=== PATIENT | male | born 1940 | race Caucasian/White ===

== ENCOUNTER 2017-02-28 11:14 | Emergency (ER) | payer MEDICARE, OTHER ==
[~2017-02-28] VITALS: Ht 180.3 cm; Wt 113.0 kg
[~2017-02-28 11:14] MED LIST: ASPIRIN EC81 MG PO; AUGMENTIN500TAB PO; AVELOX400 MG PO; CORTISPORIN OTI10 ML AD; EQ ASPIRIN325 M1 OR; EQ ASPIRIN81 M1 PO; ESTER-C500 M2 OR; FISH OIL1000 M1 OR; FOLIC ACID400 MC1 OR; KLOR-CON 1010 ME1 OR; KLOR-CON M2020 MEQ PO; LASIX40 MG PO; LIPITOR40 MG PO; LISINOPRIL20 MG; LORTAB 5 OR; LOSARTAN POT100 MG PO; MEDDOSEPAK PO; MULTI VIT PO; MULTI VITAMN OR; NAPROSYN375 MG PO; NORVASC10 M1 PO; NORVASC5 MG OR; PLAVIX75 MG PO; PRO-AIR INH; SAW PALMETTO450 MG PO; TOPROL XL25 M1 PO; VIT B12 PO; [UNRECOGNIZED DRUG - OTHER] PO
[2017-02-28] MEDS ORDERED: BACTRIM DS1 TAB PO ×2 (11:46→11:49)
[2017-02-28] MEDS ORDERED: CEPHALEXIN500 MG PO ×2 (11:46→11:49)
[2017-02-28 11:54] VITALS: BP 139/74
== END 2017-02-28 11:54 | disposition home or self-care (01) ==
LOC: ED 11:14
DX: T81.4XXA Infection following a procedure, initial encounter (principal); I25.10 Atherosclerotic heart disease of native coronary artery without angina pectoris; I10 Essential (primary) hypertension; M19.90 Unspecified osteoarthritis, unspecified site; Y83.8 Other surgical procedures as the cause of abnormal reaction of the patient, or of later complication, without mention of misadventure at the time of the procedure; Z95.5 Presence of coronary angioplasty implant and graft; Z85.820 Personal history of malignant melanoma of skin

== ENCOUNTER 2017-08-01 09:14 | Emergency (ER) | payer MEDICARE, OTHER ==
[~2017-08-01] VITALS: Ht 180.3 cm; Wt 103.6 kg
[~2017-08-01 09:14] MED LIST changes: +BACTRIM DS1 TAB PO; +CEPHALEXIN500 MG PO
[2017-08-01 11:56] VITALS: BP 145/81
== END 2017-08-01 12:04 | disposition home or self-care (01) ==
LOC: ED 09:14
PROC: 0HQ1XZZ Repair Face Skin, External Approach (ICD-10-PCS; principal; 2017-08-01)
DX: S01.111A Laceration without foreign body of right eyelid and periocular area, initial encounter (principal); I25.10 Atherosclerotic heart disease of native coronary artery without angina pectoris; I10 Essential (primary) hypertension; M19.90 Unspecified osteoarthritis, unspecified site; W22.09XA Striking against other stationary object, initial encounter; Y92.009 Unspecified place in unspecified non-institutional (private) residence as the place of occurrence of the external cause; Z95.5 Presence of coronary angioplasty implant and graft

== ENCOUNTER 2017-08-10 10:16 | Emergency (ER) | payer MEDICARE, OTHER ==
[~2017-08-10] VITALS: Ht 180.3 cm; Wt 105.6 kg
[2017-08-10 11:38] VITALS: BP 130/70
== END 2017-08-10 11:40 | disposition home or self-care (01) ==
LOC: ED 10:16
DX: S01.111D Laceration without foreign body of right eyelid and periocular area, subsequent encounter (principal)

== ENCOUNTER 2020-01-20 | Emergency (ER) | payer MEDICARE, OTHER ==
[2020-01-20] MEDS ORDERED: POTASSIUM99 MG PO (20:16)
[2020-01-20] MEDS ORDERED: LOSARTAN POTASS50 MG PO (20:18)
[2020-01-20] MEDS ORDERED: NORVASC5 M1 PO (20:19)
[2020-01-20 20:37] LABS: HEMATOCRIT 37.1 % (39.0-50.0); HEMOGLOBIN 12.8 g/dl (14.0-18.0); IMMATURE GRANULOCYTES 0.2 % (0.0-5.0); MEAN CELL VOLUME 91.8 fL CALC (80.0-100.0); MEAN CORPUSCULAR HGB 31.7 pG CALC (26.0-32.0); MEAN CORPUSCULAR HGB CONC 34.5 g/dL CAL (32.0-36.0); NEUT# 3.34 thou/uL (1.82-7.42); RED BLOOD COUNT 4.04 mill/uL (4.70-6.10); RED CELL DISTRI WIDTH 12.2 % (11.5-15.5)
[2020-01-20 20:46] LABS: ALKALINE PHOSPHATASE 109 u/l (38-126); ANION GAP 11 (6-22 (CALC)); BILIRUBIN, TOTAL 0.6 mg/dL (0.0-1.4); BUN 22 mg/dL (8-23); BUN/CREATININE RATIO 28 (12-20 (CALC)); CARBON DIOXIDE 27 mmol/l (22-30); CHLORIDE 105 mmol/l (95-108); CREATININE 0.8 mg/dL (0.7-1.3); GFR > 60 ML/MIN (>=60 (CALC)); GFR FOR AFR.AMER. > 60 ML/MIN (>=60 (CALC)); POTASSIUM 3.4 mmol/l (3.5-5.1); SGOT/AST 27 u/l (19-48); SODIUM 139 mmol/l (137-146); TOTAL PROTEIN 7.1 g/dL (6.3-8.2)
[2020-01-20 20:58] LABS: MYOGLOBIN 32 ng/mL (0 - 121)
[2020-01-20] MEDS ORDERED: ROBITUSSIN AC10 ML PO (21:41)
[2020-01-20] MEDS ORDERED: TORADOL PO (21:41)
--- NOTE | 2020-01-25 10:10 | NUR ---
Notified patient of Covid results (Negative). Advised patient to follow up with PCP or return to ED with urgent needs. Advised patient to continue practicing Covid prevention. Patient verbalized understanding.
== END 2020-01-20 21:41 | disposition home or self-care (01) ==
PROVIDERS: Family Medicine
DX: J20.8 Acute bronchitis due to other specified organisms (principal); R07.89 Other chest pain; I10 Essential (primary) hypertension; Z95.0 Presence of cardiac pacemaker; Z20.828 Contact with and (suspected) exposure to other viral communicable diseases

== ENCOUNTER 2021-05-31 10:52 | Emergency (ER) | payer MEDICARE, OTHER ==
[~2021-05-31] VITALS: Ht 180.3 cm; Wt 95.0 kg
[~2021-05-31 10:52] MED LIST changes: +LOSARTAN POTASS50 MG PO; +NORVASC5 M1 PO; +POTASSIUM99 MG PO; +ROBITUSSIN AC10 ML PO; +TORADOL PO
[2021-05-31] MEDS ORDERED: AMOX/K CLAV875 M1 PO (11:36)
[2021-05-31 11:42] VITALS: BP 134/60
== END 2021-05-31 11:46 | disposition home or self-care (01) ==
LOC: ED 10:52
DX: S50.811A Abrasion of right forearm, initial encounter (principal); I10 Essential (primary) hypertension; W22.09XA Striking against other stationary object, initial encounter; Z95.0 Presence of cardiac pacemaker

== ENCOUNTER 2021-06-03 08:00 | Emergency (ER) | payer MEDICARE, OTHER ==
[~2021-06-03] VITALS: Ht 180.3 cm; Wt 95.5 kg
[~2021-06-03 08:00] MED LIST changes: +AMOX/K CLAV875 M1 PO
[2021-06-03 08:26] VITALS: BP 132/72
== END 2021-06-03 08:20 | disposition home or self-care (01) ==
LOC: ED 08:00
DX: S40.811D Abrasion of right upper arm, subsequent encounter (principal); I10 Essential (primary) hypertension; X58.XXXD Exposure to other specified factors, subsequent encounter; Z95.0 Presence of cardiac pacemaker

== ENCOUNTER 2022-08-28 07:34 | Emergency (ER) | payer MEDICARE, OTHER ==
[~2022-08-28] VITALS: Ht 180.3 cm; Wt 91.0 kg
[2022-08-28 08:20] VITALS: BP 176/82
== END 2022-08-28 08:32 | disposition home or self-care (01) ==
LOC: ED 07:34
DX: R04.0 Epistaxis (principal); I10 Essential (primary) hypertension; Z95.0 Presence of cardiac pacemaker

== ENCOUNTER 2023-01-09 11:50 | Observation (INO) | payer MEDICARE, OTHER ==
[~2023-01-09] VITALS: Ht 180.3 cm; Wt 96.1 kg
[2023-01-09] VITALS (22 sets, daily range): BP systolic 150–212; BP diastolic 70–101
[2023-01-09 13:01] LABS: BASO% 0.5 % (0-3); HEMATOCRIT 37.6 % (39.0-50.0); HEMOGLOBIN 12.8 g/dl (14.0-18.0); IMMATURE GRANULOCYTES 0.3 % (0.0-5.0); LYMPH% 26.8 % (15-41); MEAN CELL VOLUME 94.5 fL CALC (80.0-100.0); MEAN CORPUSCULAR HGB 32.2 pG CALC (26.0-32.0); MONO% 9.6 % (2-13); NEUT# 2.33 thou/uL (1.82-7.42); NEUT% 58.8 % (42-76); RED BLOOD COUNT 3.98 mill/uL (4.70-6.10); RED CELL DISTRI WIDTH 12.5 % (11.5-15.5)
[2023-01-09 13:15] LABS: ALBUMIN 3.8 g/dL (3.2-5.0); ALKALINE PHOSPHATASE 94 u/l (38-126); ANION GAP 9 (6-22 (CALC)); BUN 22 mg/dL (8-23); BUN/CREATININE RATIO 25 (12-20 (CALC)); CARBON DIOXIDE 27 mmol/l (22-30); CHLORIDE 108 mmol/l (95-108); CREATININE 0.9 mg/dL (0.7-1.3); GFR FOR AFR.AMER. > 60 ML/MIN (>=60 (CALC)); GFR OTHER RACES > 60 ML/MIN (>=60 (CALC)); POTASSIUM 3.9 mmol/l (3.5-5.1); SGOT/AST 26 u/l (19-48); SODIUM 141 mmol/l (137-146); TOTAL PROTEIN 6.5 g/dL (6.3-8.2)
[2023-01-09 13:20] LABS: BILIRUBIN, TOTAL 0.3 mg/dL (0.2-1.3)
[2023-01-09] MEDS ORDERED: [UNRECOGNIZED DRUG - OTHER] (17:04)
[2023-01-09] MEDS ORDERED: MAGNESIUM OXID400 M1 PO (17:05)
[2023-01-09] MEDS ORDERED: IS-ZC 50 50 MG1 TAB PO (17:06)
[2023-01-09] MEDS ORDERED: B12 FAST DIS5000 MCG PO (17:06)
[2023-01-10] VITALS (7 sets, daily range): BP systolic 148–168; BP diastolic 70–82
== END 2023-01-10 12:45 | disposition home or self-care (01) ==
LOC: ED 11:50 → ED-I 14:15 → ED 14:44 → MS2 14:45
PROVIDERS: Family Medicine; ADMIT Internal Medicine; ATTEND Internal Medicine
DX: S00.83XA Contusion of other part of head, initial encounter (principal); S00.81XA Abrasion of other part of head, initial encounter; S80.211A Abrasion, right knee, initial encounter; I11.0 Hypertensive heart disease with heart failure; I50.9 Heart failure, unspecified; W01.0XXA Fall on same level from slipping, tripping and stumbling without subsequent striking against object, initial encounter; Y92.009 Unspecified place in unspecified non-institutional (private) residence as the place of occurrence of the external cause; Z79.02 Long term (current) use of antithrombotics/antiplatelets; Z95.0 Presence of cardiac pacemaker; Z96.651 Presence of right artificial knee joint